=== PATIENT | male | born 1985 | race Two or more races ===

== ENCOUNTER 2020-08-01 14:55 | Emergency (ER) | payer OTHER ==
--- NOTE | 2020-08-01 16:58 | ED ---
General Adult HPI <Maximus Garcia - Last Filed: 08/01/20 16:58> <Nina Keating - Last Filed: 08/01/20 21:52> - General Stated complaint: headache.nausea,weakness - History of Present Illness Initial comments: 35-year-old male with history of tinnitus presents to emergency Department with a chief complaint of headache, tinnitus, nausea x 1 week. Patient reports about 2 weeks ago he received the first dose of a Pfizer coronavirus vaccine. Patient reports not his been feeling occasionally nauseated but no vomiting or diarrhea. He does have decreased appetite but denies any abdominal chest pain or shortness of breath. He does report increased tinnitus but denies any dizziness or lightheadedness or blurry vision. Reports more headaches than usual but not one at this time. Patient had Covid in March. (Maximus Garcia) - Related Data Previous Rx's Medication Instructions Recorded Azithromycin [Zithromax Tri-Rosales (3 500 mg PO DAILY 7 Days #7 tab 08/01/20 tabs)] Allergies Allergy/AdvReac Type Severity Reaction Status Date / Time lisinopril Allergy Rapid Verified 08/01/20 17:00 Heart Rate nitroglycerin Allergy Rapid Verified 08/01/20 17:00 Heart Rate Review of Systems ROS Other: All systems not noted in ROS Statement are negative. <Maximus Garcia - Last Filed: 08/01/20 16:58> ROS Other: All systems not noted in ROS Statement are negative. <Nina Keating - Last Filed: 08/01/20 21:52> ROS Statement: Those systems with pertinent positive or pertinent negative responses have been documented in the HPI. General Exam <Nina Keating - Last Filed: 08/01/20 21:52> - General Exam Comments Initial Comments: General: The patient is awake and alert, in no distress Eye: +3mm pupils are equal, round and reactive to light, extra-ocular movements are intact. No nystagmus. There is normal conjunctiva bilaterally. No signs of icterus. Ears, nose, mouth and throat: There are moist mucous membranes and no oral lesions. TM are bulging and erythematous b/l, no mastoid tenderness, no oropharynx redness, uvula midline Neck: The neck is supple, there is no tenderness or JVD. No nuchal rigidity Cardiovascular: There is a regular rate and rhythm. No murmur, rub or gallop is appreciated. Respiratory: Lungs are clear to auscultation, respirations are non-labored, breath sounds are equal. No wheezes, stridor, rales, or rhonchi. Gastrointestinal: Soft, non-distended, non-tender abdomen without masses or organomegaly noted. There is no rebound or guarding present. Musculoskeletal: Normal ROM, no tenderness. Strength 5/5. Sensation intact. Radial and DP pulses equal bilaterally 2+. Neurological: A&O x 3. CN II-XII intact, There are no obvious motor or sensory deficits. Coordination appears grossly intact. Speech is normal. Skin: Skin is warm and dry and no rashes or lesions are noted. No calf pain or LE edema. Psychiatric: Cooperative, appropriate mood & affect, normal judgment. (Nina Keating) Course Vital Signs 08/01/20 08/01/20 16:53 20:48 Temperature 99.3 F 98 F Pulse Rate 98 94 Respiratory 20 20 Rate Blood Pressure 162/91 162/91 O2 Sat by Pulse 99 97 Oximetry Medical Decision Making <Nina Keating - Last Filed: 08/01/20 21:52> - Medical Decision Making 35yo male presenting for cc of ear pain, ringing in ears, on and off headache, chills. Patient covid (-). CXR possible pneumonia. pt doesnt appear toxic. definite otitis media. patient will be treated with azithromycin and discharged. discussed case with Dr George. (Nina Keating) - Lab Data Lab Results 08/01/20 Range/Units 17:00 Coronavirus (PCR) Not Detected (Not Detectd) Disposition <Maximus Garcia - Last Filed: 08/01/20 16:58> Is patient prescribed a controlled substance at d/c from ED?: No Time of Disposition: 20:40 <Nina Keating - Last Filed: 08/01/20 21:52> Clinical Impression: Otitis media, Headache, Chills, Fatigue Disposition: HOME SELF-CARE Condition: Good Instructions (If sedation given, give patient instructions): Ear Infection (ED) Additional Instructions: Please use medication as discussed. Please follow-up with family doctor in the next 2 days. Please return to emergency room if the symptoms increase or worsen or for any other concerns. Prescriptions: Azithromycin [Zithromax Tri-Rosales (3 tabs)] 500 mg PO DAILY 7 Days #7 tab Referrals: Brii Skinner MD [Primary Care Provider] - 1-2 days
[2020-08-01 16:59] VITALS: BP 162/91; RESP 20
--- NOTE | 2020-08-01 19:52 | XR ---
EXAMINATION TYPE: XR chest 2V DATE OF EXAM: 08/01/2020 COMPARISON: NONE TECHNIQUE: PA and lateral views submitted. HISTORY: Chills FINDINGS: The lungs are clear and there is no pneumothorax, pleural effusion, or focal pneumonia. Coarsened c entral perihilar markings. IMPRESSION: 1. Correlate for bronchitis or mild central bronchiolitis, interstitial pneumonia..
[2020-08-01] MEDS ORDERED: AZITHROMYCIN 500 MG TAB PO STA (20:39)
[2020-08-01 20:49] VITALS: PULSE 94; TEMP 98
== END 2020-08-01 20:49 | disposition home or self-care (01) ==
LOC: EC 14:55
DX: H66.93 Otitis media, unspecified, bilateral (principal); Z20.822 Contact with and (suspected) exposure to COVID-19; Z88.8 Allergy status to other drugs, medicaments and biological substances; R53.83 Other fatigue
CPT/HCPCS: 71046; 87635; 99284

== ENCOUNTER → 2022-10-30 | Outpatient (CLI) | payer BC ==
--- NOTE | 2022-10-30 14:22 | P.PN ---
Subjective DATE: 10/30/2022 FOLLOW UP VISIT. Patient with obstructive sleep apnea hypopnea syndrome return to sleep center for follow-up visit. Recently patient had sleep study which documented obstructive sleep apnea hypopnea syndrome. Patient was initiated on PAP therapy and today is first visit after treatment was started. Patient was able to use PAP equipment every night for the whole night. I explained results of sleep studies to the patient in details The patient does not have significant problems with the mask, PAP pressure and humidification. [place] sleepiness scale is, which is normal. Patient feels significant improvements related to his sleep and feeling during the day after she was started on treatment with BiPAP. I checked information from BPAP unit. BPAP unit pressure maximal inspiratory pressure 24, minimal expiratory pressure 10, pressure-support 4 cm H2O. Usage is 90% and 87 % for more then 4 hours, average 5.75 hours per night. Leak is increased to 35.2 l/m. Apnea Hypopnea Index slightly increased to 6.9. MEDICATIONS:1. Metformin 2. Glipizide 3. Losartan 4. Metoprolol 5. Actos 6. Atorvastatin During physical exam: GENERAL: A pleasant patient without any distress. VITAL SIGNS: BP 143/102 on left arm and 155/102 on right arm, HR 92, RR 18, weight 266.0, temperature 98.3, oxygen saturation at room air 98%. HEENT: PERRLA, EOMI.low position of soft palate, Mallapati 4 . NECK: Supple. No JVD. LUNGS: Clear to percussion and to auscultation. Good air exchange. No wheezing or rhonchi. HEART: S1, S2 regular. ABDOMEN: Soft and nontender. Obese EXTREMITIES: No clubbing or cyanosis. ESTIMATION MANAGER: Awake, alert, and oriented x3. No focal deficit. Impressions: 1. Obstructive sleep apnea-hypopnea syndrome. Patient demonstrated great compliance with treatment, benefiting from treatment. 2. Obesity patient increased his weight on at 10 pounds comparing to the previous visit. 3. Hypertension. 4. Diabetes mellitus. 5. Status post hernia repair. Plan: 1. Continue using BPAP equipment every night for the whole night. 2. To change air filter at least 1-2 times per month. 3. PAP unit should stay lower then position of the head. 4. Advised patient to remove all remaining water from humidifier canister daily and make it dry after each usage. Refill canister with fresh distilled water before each usage. 5. Sleep hygiene with regular time in bed for at least 8 hours. 6. Precautions related to driving. No driving if feel any sleepiness. 7. I will maintain prescription for PAP supplies including mask, tube, filters. 8. Follow up visit in 6 months or earlier if patient has any problems. 9. Watching and losing weight. Thank you very much for allowing me to participate in the management of your patient. Arnie Christina MD, PhD, FAASM. Diplomat of [place] [employer], Sleep Medicine Board by [place] [employer] Developer Designer of [facility] [place]
== END ==
LOC: 3 N SLEEP 13:27
PROVIDERS: ATTEND Internal Medicine
DX: G47.33 Obstructive sleep apnea (adult) (pediatric) (principal); E66.9 Obesity, unspecified; I10 Essential (primary) hypertension; E11.9 Type 2 diabetes mellitus without complications; Z98.890 Other specified postprocedural states; Z99.89 Dependence on other enabling machines and devices; Z79.84 Long term (current) use of oral hypoglycemic drugs; Z79.899 Other long term (current) drug therapy; Z88.8 Allergy status to other drugs, medicaments and biological substances
CPT/HCPCS: 99212

== ENCOUNTER 2023-04-03 06:00 | Emergency (ER) | payer BC ==
[2023-04-03 06:11] VITALS: RESP 18
--- NOTE | 2023-04-03 06:27 | ED ---
ENT HPI - General Chief complaint: ENT Stated complaint: High BP/ear infection Time Seen by Provider: 04/03/23 06:26 Source: patient, RN notes reviewed Mode of arrival: ambulatory Limitations: no limitations - History of Present Illness Initial comments: 37-year-old male presents emergency Department chief complaint of finger pain. Patient states that he has a history of tendinitis in which she seen multiple providers for. Patient states that he should have worsening symptoms mild discomfort in which he states that he feels like he has an ear infection. He also states he had recent blood pressure medication added a few weeks ago and is concerned this may be causing worsening of his symptoms. Patient has not taken his morning medications and which is on metoprolol, amlodipine and lolsartan - Related Data Previous Rx's Medication Instructions Recorded Azithromycin [Zithromax Tri-Rosales (3 500 mg PO DAILY 7 Days #7 tab 08/01/20 tabs)] Amoxicillin 875 mg PO Q12HR #20 tablet 04/03/23 Allergies Allergy/AdvReac Type Severity Reaction Status Date / Time lisinopril Allergy Rapid Verified 04/03/23 06:07 Heart Rate nitroglycerin Allergy Rapid Verified 04/03/23 06:07 Heart Rate Review of Systems ROS Statement: Those systems with pertinent positive or pertinent negative responses have been documented in the HPI. ROS Other: All systems not noted in ROS Statement are negative. Past Medical History Past Medical History: Diabetes Mellitus, Hyperlipidemia, Hypertension Additional Past Medical History / Comment(s): covid 04/16 History of Any Multi-Drug Resistant Organisms: None Reported Past Surgical History: Hernia Repair Past Psychological History: No Psychological Hx Reported Smoking Status: Never smoker Past Alcohol Use History: None Reported Past Drug Use History: Marijuana General Exam - General Exam Comments Initial Comments: Visual Physical Exam Vital signs reviewed General: Well-appearing, nontoxic, no acute distress. Head: Normocephalic, atraumatic Eyes: PERRLA, EOMI ENT: Airway patent Chest: Nonlabored breathing Skin: No visual rash, normal skin tone Neuro: Alert and oriented 3 Musculoskeletal: No gross abnormalities Limitations: no limitations General appearance: alert, in no apparent distress Head exam: Present: atraumatic, normocephalic, normal inspection Eye exam: Present: normal appearance, PERRL, EOMI. Absent: scleral icterus, conjunctival injection, periorbital swelling ENT exam: Present: normal exam, normal oropharynx, mucous membranes moist. Absent: TM's normal bilaterally Neck exam: Present: normal inspection, full ROM. Absent: tenderness, meningismus, lymphadenopathy Respiratory exam: Present: normal lung sounds bilaterally. Absent: respiratory distress, wheezes, rales, rhonchi, stridor Cardiovascular Exam: Present: regular rate, normal rhythm, normal heart sounds. Absent: systolic murmur, diastolic murmur, rubs, gallop, clicks GI/Abdominal exam: Present: soft, normal bowel sounds. Absent: distended, tenderness, guarding, rebound, rigid Course Vital Signs 04/03/23 04/03/23 04/03/23 06:07 07:29 08:30 Temperature 98.2 F 98.9 F 98.8 F Pulse Rate 93 105 H 90 Respiratory 18 18 Rate Blood Pressure 153/100 160/103 165/106 O2 Sat by Pulse 98 98 100 Oximetry Medical Decision Making - Medical Decision Making I completed the quick note portion of this chart signed Hudson Mcqueen PA-C Was pt. sent in by a medical professional or institution (JASWINDER Jama, LITHOGRAPH PRESS OPERATOR, urgent care, hospital, or [place] health care facility...) When possible be specific @ -No Did you speak to anyone other than the patient for history (EMS, parent, family, police, friend...)? What history was obtained from this source @ -No Did you review nursing and triage notes (agree or disagree)? Why? @ -I reviewed and agree with nursing and triage notes Were old charts reviewed (outside hosp., previous admission, EMS record, old EKG, old radiological studies, urgent care reports/EKG's, [place] health care facility records)? Report findings @ -No old charts were reviewed Differential Diagnosis (chest pain, altered mental status, abdominal pain women, abdominal pain men, vaginal bleeding, weakness, fever, dyspnea, syncope, headache, dizziness, GI bleed, back pain, seizure, CVA, palpatations, mental health, musculoskeletal)? @ -Tinnitus, otitis media, otitis externa, eustachian tube dysfunction EKG interpreted by me (3pts min.). @ -None X-rays interpreted by me (1pt min.). @ -None done CT interpreted by me (1pt min.). @ -None done U/S interpreted by me (1pt. min.). @ -None done What testing was considered but not performed or refused? (CT, X-rays, U/S, labs)? Why? @ -None What meds were considered but not given or refused? Why? @ -None Did you discuss the management of the patient with other professionals (professionals i.e. , PA, LITHOGRAPH PRESS OPERATOR, lab, RT, psych nurse, social human services assistants, loading unit operator seating, teacher, helicopter officer, manager case)? Give summary @ -No Was smoking cessation discussed for >3mins.? @ -No Was critical care preformed (if so, how long)? @ -No Were there social determinants of health that impacted care today? How? (Homelessness, low income, unemployed, alcoholism, drug addiction, transportation, low edu. Level, literacy, decrease access to med. care, senior care, rehab)? @ -No Was there de-escalation of care discussed even if they declined (Discuss DNR or withdrawal of care, Hospice)? DNR status @ -No What co-morbidities impacted this encounter? (DM, HTN, Smoking, COPD, CAD, Cancer, CVA, ARF, Chemo, Hep., AIDS, mental health diagnosis, sleep apnea, morbid obesity)? @ -Hypertension Was patient admitted / discharged? Hospital course, mention meds given and route, prescriptions, significant lab abnormalities, going to OR and other pertinent info. @ -Discharge patient blood pressure is improving, patient advised to continue monitor, and blood pressure is elevated he does take an extra dose of his amlodipine that he was started on. Patient was started on amoxicillin for his otitis media Undiagnosed new problem with uncertain prognosis? @ -No Drug Therapy requiring intensive monitoring for toxicity (Heparin, Nitro, Insulin, Cardizem)? @ -No Were any procedures done? @ -No Diagnosis/symptom? @ -Tinnitus, otitis media, hypertension Acute, or Chronic, or Acute on Chronic? @ -Acute Uncomplicated (without systemic symptoms) or Complicated (systemic symptoms)? @ -Uncomplicated Side effects of treatment? @ -No Exacerbation, Progression, or Severe Exacerbation? @ -No Poses a threat to life or bodily function? How? (Chest pain, [place], SC, pneumonia, PE, COPD, DKA, ARF, appy, cholecystitis, CVA, Diverticulitis, Homicidal, Suicidal, threat to staff... and all critical care pts) @ -No - Lab Data Lab Results 04/03/23 Range/Units 07:43 Influenza Type A (PCR) Not Detected (Not Detectd) Influenza Type B (PCR) Not Detected (Not Detectd) RSV (PCR) Not Detected (Not Detectd) SARS-CoV-2 (PCR) Not Detected (Not Detectd) Disposition Clinical Impression: Bilateral tinnitus, Otitis media, Hypertension Disposition: HOME SELF-CARE Instructions (If sedation given, give patient instructions): Earache (ED) Additional Instructions: Please return to the Emergency Department if symptoms worsen or any other concerns. Prescriptions: Amoxicillin 875 mg PO Q12HR #20 tablet Is patient prescribed a controlled substance at d/c from ED?: No Referrals: Gerald Davis MD [Primary Care Provider] - 1-2 days Time of Disposition: 08:45
[2023-04-03] MEDS ORDERED: METOPROLOL SUCCINATE (ER) 25 MG TAB.ER.24H PO STA (06:39)
[2023-04-03] MEDS ORDERED: LOSARTAN 50 MG TAB PO STA (06:39)
[2023-04-03] MEDS ORDERED: amLODIPine 5 MG TAB PO STA (06:39)
[2023-04-03] MEDS ORDERED: IBUPROFEN 600 MG TAB PO STA (07:40)
[2023-04-03 08:37] VITALS: BP 165/106; PULSE 90; TEMP 98.8
[2023-04-03] MEDS ORDERED: AMOXICILLIN 875 MG TAB PO STA (08:54)
== END 2023-04-03 09:11 | disposition home or self-care (01) ==
LOC: EC 06:00
DX: I10 Essential (primary) hypertension (principal); H93.13 Tinnitus, bilateral; H66.93 Otitis media, unspecified, bilateral; E11.9 Type 2 diabetes mellitus without complications; Z86.16 Personal history of COVID-19; Z88.8 Allergy status to other drugs, medicaments and biological substances; Z20.822 Contact with and (suspected) exposure to COVID-19
CPT/HCPCS: 87636; 99283

== ENCOUNTER → 2023-05-01 | Outpatient (CLI) | payer BC ==
--- NOTE | 2023-05-01 17:19 | P.PN ---
Subjective DATE: 05/01/2023 FOLLOW UP VISIT. Patient with obstructive sleep apnea hypopnea syndrome return to sleep center for follow-up visit. Information from previous visit have been reviewed. Patient is using PAP equipment most of the nights, getting PAP supplies in time. The patient does not have significant problems with the mask, PAP unit and humidification. [place] sleepiness scale is 4, which is normal. I checked information from PAP unit. PAP unit pressure maximal inspiratory pressure 24, minimal expiratory pressure 10, pressure-support 4, average BiPAP pressure 17.5/ 13.5 cm H2O. Usage is about 70% for last 6 months, average 4 hours per night. Leak is increased 43.7 l/m. Apnea Hypopnea Index is slightly increased to 6.1 for the last months and 5.8 for the last 6 months. MEDICATIONS:1. Metformin 500 mg twice a day 2. Metoprolol 25 mg once a day 3. Amlodipine 5 mg once a day 4.. Obesity does on 10 mg once a day 5. Glipizide 10 mg once a day 6. Rubelsus 3 mg once a day During physical exam: GENERAL: A pleasant patient without any distress. VITAL SIGNS: BP 156/98, HR 102, RR 18, weight 264.0, temperature 98.4, oxygen saturation at room air 99 % . HEENT: PERRLA, EOMI.low position of soft palate, Mallapati 4 . NECK: Supple. No JVD. LUNGS: Clear to percussion and to auscultation. Good air exchange. No wheezing or rhonchi. HEART: S1, S2 regular. ABDOMEN: Soft and nontender. Obese EXTREMITIES: No clubbing or cyanosis. CONTROLLER INSTRUCTOR: Awake, alert, and oriented x3. No focal deficit. Impressions: 1. Obstructive sleep apnea-hypopnea syndrome. Patient demonstrated borderline compliance with treatment, benefiting from treatment. 2. Obesity, patient lost 2 pounds since previous visit. 3. Hypertension. 4. Diabetes mellitus. 5. Status post hernia repair. 6. ALLERGIES. 7. Sinuses problems. Plan: 1. Continue using PAP equipment every night for the whole night. I discussed with patient necessity to use BiPAP equipment every night for the whole night. 2. To change air filter at least 1-2 times per month. 3. PAP unit should stay lower then position of the head. 4. Advised patient to remove all remaining water from humidifier canister daily and make it dry after each usage. Refill canister with fresh distilled water before each usage. 5. Sleep hygiene with regular time in bed for at least 8 hours. 6. Precautions related to driving. No driving if feel any sleepiness. 7. I will maintain prescription for PAP supplies including mask, tube, filters. 8. Watching and losing weight. 9. Follow up visit in 6 months or earlier if patient has any problems. Thank you very much for allowing me to participate in the management of your patient. Arnie Christina MD, PhD, FAASM. Diplomat of [place] [employer], Sleep Medicine Board by [place] [employer] Mold Injector of [facility] [place]
== END ==
LOC: 3 N SLEEP 16:29
PROVIDERS: ATTEND Internal Medicine
DX: G47.33 Obstructive sleep apnea (adult) (pediatric) (principal); E66.9 Obesity, unspecified; I10 Essential (primary) hypertension; E11.9 Type 2 diabetes mellitus without complications; J34.89 Other specified disorders of nose and nasal sinuses; Z98.890 Other specified postprocedural states; Z79.899 Other long term (current) drug therapy; Z79.84 Long term (current) use of oral hypoglycemic drugs; Z99.89 Dependence on other enabling machines and devices; Z88.8 Allergy status to other drugs, medicaments and biological substances
CPT/HCPCS: 99212

== ENCOUNTER → 2024-03-04 | Outpatient (CLI) | payer BC ==
[2024-03-04 14:35] VITALS: BP 137/93; PULSE 94; RESP 16; TEMP 98.8
--- NOTE | 2024-03-04 14:51 | P.PROGSL ---
Subjective DATE: 03/04/2024 FOLLOW UP VISIT. Patient with obstructive sleep apnea hypopnea syndrome return to sleep center for follow-up visit. Information from previous visit have been reviewed. Patient used PAP equipment every night but for the last months he is hose was broken. The patient does not have significant problems with the mask, PAP unit and humidification. [place] sleepiness scale is 4. I checked information from PAP unit. PAP unit pressure maximal inspiratory pressure 24, minimal expiratory pressure 10, pressure support 4, average pressure 17.1/13.1 cm H2O. Usage is 30% for more then 4 hours, average 3.9 hours per night. Leak is increased to 48 l/m, which is in acceptable range. Apnea Hypopnea Index is 3.7, which is normal. MEDICATIONS have been reviewed, please see below. During physical exam: GENERAL: A pleasant patient without any distress. VITAL SIGNS: Please see below, weight is 276 lbs. HEENT: PERRLA, EOMI.low position of soft palate, Mallapati 4 . NECK: Supple. No JVD. LUNGS: Clear to percussion and to auscultation. Good air exchange. No wheezing or rhonchi. HEART: S1, S2 regular. ABDOMEN: Soft and nontender. Obese EXTREMITIES: No clubbing or cyanosis. PUBLIC HEALTH OUTREACH WORKER: Awake, alert, and oriented x3. No focal deficit. Impressions: 1. Obstructive sleep apnea-hypopnea syndrome. Normal respiration on CPAP. 2. Obesity, BMI 44.5, patient increased weight on 12 pounds comparing with previous visit. 3. Hypertension. 4. Diabetes mellitus. 5. Status post hernia repair. 6. Sinus problems. 7. Allergies. Plan: 1. Continue using PAP equipment every night for the whole night. Patient promised to follow recommendations. 2. Sleep hygiene with regular time in bed for at least 7.5-8 hours 3. PAP unit should stay lower then position of the head. 4. Advised patient to remove all remaining water from humidifier canister daily and make it dry after each usage. Refill canister with fresh distilled water be fore each usage. 5. Watching and losing weight. 6. Precautions related to driving. No driving if feel any sleepiness. 7. I will maintain prescription for PAP supplies including mask, tube, filters. 8. Follow up visit in 6 months or earlier if patient has any problems. Thank you very much for allowing me to participate in the management of your patient. Arnie Christina MD, PhD, FAASM. Diplomat of [place] [employer], Sleep Medicine Board by [place] [employer] Tools Administrator of [facility] [place] cc: Gerald Davis MD Objective - Vital Signs Vital Signs: Vital Signs Temp 98.8 F 03/04/24 14:34 Pulse 94 03/04/24 14:34 Resp 16 03/04/24 14:34 BP 137/93 03/04/24 14:34 Pulse Ox 98 03/04/24 14:34 FiO2 Intake & Output 03/03/24 03/04/24 03/04/24 18:59 06:59 18:59 Weight 125.191 kg Home Medications: Home Medications Medication Instructions Recorded Confirmed Type Azithromycin [Zithromax Tri-Rosales (3 500 mg PO DAILY 7 Days #7 tab 08/01/20 Rx tabs)] Amoxicillin 875 mg PO Q12HR #20 tablet 04/03/23 Rx Azelastine HCl [Astepro] 1 spray NASAL DAILY 03/04/24 03/04/24 History Citalopram Hydrobromide 20 mg PO DAILY 03/04/24 03/04/24 History [Citalopram HBr] Fexofenadine HCl 180 mg PO DAILY 03/04/24 03/04/24 History Fluticasone Nasal [place] [Flonase See Rx Instructions .ROUTE .COMPLEX 03/04/24 03/04/24 History Nasal [place]] Insulin Glargine,Hum.rec.anlog 25 ml SQ DAILY 03/04/24 03/04/24 History [Lantus Solostar Pen] Losartan Potassium 100 mg PO DAILY 03/04/24 03/04/24 History Montelukast [Singulair] 10 mg PO DAILY 03/04/24 03/04/24 History Pioglitazone [Actos] 40 mg PO DAILY 03/04/24 03/04/24 History amLODIPine 10 mg PO DAILY 03/04/24 03/04/24 History glipiZIDE 10 mg PO DAILY 03/04/24 03/04/24 History hydroCHLOROthiazide 25 mg PO DAILY 03/04/24 03/04/24 History metFORMIN HCL 500 mg PO DAILY 03/04/24 03/04/24 History
== END ==
LOC: 3 N SLEEP 14:16
PROVIDERS: ATTEND Internal Medicine
DX: G47.33 Obstructive sleep apnea (adult) (pediatric) (principal); E66.9 Obesity, unspecified; I10 Essential (primary) hypertension; E11.9 Type 2 diabetes mellitus without complications; J34.89 Other specified disorders of nose and nasal sinuses; Z98.890 Other specified postprocedural states; Z99.89 Dependence on other enabling machines and devices; Z68.41 Body mass index [BMI] 40.0-44.9, adult; Z88.8 Allergy status to other drugs, medicaments and biological substances; Z79.4 Long term (current) use of insulin; Z79.899 Other long term (current) drug therapy; Z79.84 Long term (current) use of oral hypoglycemic drugs
CPT/HCPCS: 99212